=== PATIENT | female | born 1955 | race Caucasian/White ===

== ENCOUNTER 2018-08-08 14:57 | Emergency (ER) | payer OTHER ==
[~2018-08-08] VITALS: Ht 162.6 cm; Wt 61.2 kg
[2018-08-08] MEDS ORDERED: DONNATAL/LIDOCAINE/MAALOX 30 ML SUSP PO STA (15:05)
[2018-08-08] MEDS ORDERED: OMEPRAZOLE40 MG PO (15:07)
[2018-08-08] MEDS ORDERED: ASPIRIN 81 MG CHEW TAB PO ONE (15:15)
[2018-08-08 15:30] LABS: BASOPHILS % 0.4 % (0.0-1.0); EOSINOPHILS # (AUTO) 0.1 (0.0-0.4); EOSINOPHILS % 1.2 % (0.0-6.0); HEMATOCRIT 43.3 % (34.2-44.1); HEMOGLOBIN 14.8 g/dL (12.0-16.0); LYMPHOCYTES % 36.3 % (18.0-39.1); MEAN CORPUSCULAR HEMOGLOBIN 31.2 pg (28-32); MEAN CORPUSCULAR HGB CONC 34.2 g/dL (31-35); MEAN CORPUSCULAR VOLUME 91.2 fL (81-99); MONOCYTES # (AUTO) 0.4 (0.2-0.8); MONOCYTES % 5.4 % (4.4-11.3); NEUTROPHILS # (AUTO) 4.6 (2.1-6.9); NEUTROPHILS % 56.3 % (38.7-80.0); PLATELET COUNT 359 x10e3/uL (140-360); RED BLOOD COUNT 4.75 x10e6/uL (3.6-5.1); RED CELL DISTRIBUTION WIDTH 11.9 % (11.7-14.4)
[2018-08-08 15:37] LABS: INR 0.88; PROTHROMBIN TIME 12.8 seconds (11.9-14.5)
[2018-08-08 15:38] LABS: PARTIAL THROMBOPLASTIN TIME 36.8 seconds (23.8-35.5)
[2018-08-08 15:47] LABS: ALANINE AMINOTRANSFERASE 29 IU/L (0-55); ALBUMIN 4.6 g/dL (3.5-5.0); ALBUMIN/GLOBULIN RATIO 1.5 (0.8-2.0); ALKALINE PHOSPHATASE 79 IU/L (40-150); ANION GAP 18.6 mmol/L (8-16); BLOOD UREA NITROGEN 14 mg/dL (7-26); BUN/CREATININE RATIO 17 (6-25); CALCIUM 9.9 mg/dL (8.4-10.2); CARBON DIOXIDE 23 mmol/L (22-29); CHLORIDE 99 mmol/L (98-107); CREATINE KINASE 83 IU/L (29-168); CREATININE, SERUM 0.84 mg/dL (0.57-1.11); EST GLOMERULAR FILTRATION RATE > 60 ML/MIN (60-); GLUCOSE 84 mg/dL (74-118); POTASSIUM 3.6 mmol/L (3.5-5.1); SODIUM 137 mmol/L (136-145)
--- NOTE | 2018-08-08 16:23 | Diagnostic Imaging Report ---
Examination: Single AP view of the chest. COMPARISON: None. INDICATION: Chest pain DISCUSSION: Lines/tubes: None. Lungs: The lungs are well inflated and clear. No pneumonia or pulmonary edema. Pleura: No pleural effusion or pneumothorax. Heart and mediastinum: The heart and the mediastinum are unremarkable. Bones and soft tissues: No acute bony abnormalities. IMPRESSION: 1. No acute cardiopulmonary abnormalities. Signed by: Dr. Chase Mccauley M.D. on 08/08/2018 4:19 PM
== END 2018-08-08 17:26 | disposition home or self-care (01) ==
LOC: ER 14:57
DX: R07.89 Other chest pain (principal); K21.9 Gastro-esophageal reflux disease without esophagitis; Z87.11 Personal history of peptic ulcer disease
CPT/HCPCS: 36415; 71045; 80053; 82550; 82553; 84484; 85025; 85610; 85730; 93005; 99284

== ENCOUNTER → 2019-03-13 | Outpatient (CLI) | payer MEDICARE ==
[~2019-03-13] MED LIST: OMEPRAZOLE40 MG PO
--- NOTE | 2019-03-13 08:48 | Diagnostic Imaging Report ---
EXAM: US ABDOMEN COMPLETE DATE: 03/13/2019 7:39 AM INDICATION: GERD, Ulcer, IBS, COMPARISON: None FINDINGS: The visualized pancreas appears unremarkable. The liver is normal in size measuring 12.6 cm in length. The hepatic parenchyma is homogeneous without evidence for focal abnormality. The main portal vein is patent with antegrade flow and diameter of 1.3 cm. The gallbladder contains a small amount of echogenic sludge. There is no evidence for shadowing stones, gallbladder wall thickening, or pericholecystic fluid. There is no intra or extra hepatic biliary ductal dilatation. The common bile duct measures 4 mm. Sonographic Jacob's sign is negative. The spleen is normal in size measuring 9.6 cm in length and demonstrates an unremarkable sonographic appearance. The kidneys are normal in size measuring 9.3 cm in length on the right and 9.7 cm in length on the left. Cortical thickness and echogenicity are within normal limits. There is no evidence for solid renal mass, hydronephrosis, or shadowing calculi. The visualized portions of the IVC and aorta are within normal limits. There is no ascites present. IMPRESSION: Small amount of biliary sludge noted within the gallbladder. No evidence for cholelithiasis or acute cholecystitis. Otherwise, unremarkable abdominal ultrasound examination. Signed by: Dr. Evin Moore MD on 03/13/2019 8:45 AM
== END ==
LOC: US 07:30
PROVIDERS: ATTEND Internal Medicine Gastroenterology
DX: K22.10 Ulcer of esophagus without bleeding (principal); K21.9 Gastro-esophageal reflux disease without esophagitis; K44.9 Diaphragmatic hernia without obstruction or gangrene; R07.9 Chest pain, unspecified; K58.9 Irritable bowel syndrome, unspecified; Z68.24 Body mass index [BMI] 24.0-24.9, adult
CPT/HCPCS: 76700

== ENCOUNTER → 2024-06-18 | Outpatient (REF) | payer MEDICARE | LOC: RAD 12:00 | PROVIDERS: ATTEND Family Medicine | DX: M25.531 Pain in right wrist (principal); S60.211A Contusion of right wrist, initial encounter; W19.XXXA Unspecified fall, initial encounter ==